=== PATIENT | female | born 1980 | race Caucasian/White ===

== ENCOUNTER 2017-01-27 12:37 | Emergency (ER) | payer MEDICARE, OTHER ==
[2017-01-27 12:57] LABS: APPEARANCE,URINE CLEAR (CLEAR); COLOR,URINE YELLOW (YELLOW); OCCULT BLOOD,URINE TRACE-INTACT (NEGATIVE); UROBILINOGEN URINE 0.2 Eu (0.2-1.0)
--- NOTE | 2017-01-27 13:08 | ED Physician Documentation ---
General Adult - HISTORIAN Historian: patient - HPI Stated Complaint: Urinary Symptoms Chief Complaint: General Adult Onset: days ago Timing: still present Severity: moderate Further Comments: yes (Pt is a 36 yo female with dysuria x 1 day.) - ROS CONST: other (malaise) EYES/ENT: none CVS/RESP: none GI/: problems urinating, other (dysuria) MS/SKIN/LYMPH: none - PAST HX Past History: none Allergies/Adverse Reactions: Allergies Allergy/AdvReac Type Severity Reaction Status Date / Time No Known Allergies Allergy Verified 01/27/17 12:54 Home Medications: Ambulatory Orders Medication Instructions Recorded Folic Acid/Mv,Fe,Other Min [One 1 each PO DAILY 01/27/17 Daily Maximum Tablet] Sulfamethoxazole/Trimethoprim 1 each PO BID #14 tab 01/27/17 [Bactrim Ds] - SOCIAL HX Smoking History: cigarettes - FAMILY HX Family History: No - VITAL SIGNS Vital Signs: Vital Signs Temp Pulse Resp BP Pulse Ox 99.1 F 68 18 158/84 98 01/27/17 12:40 01/27/17 12:40 01/27/17 12:40 01/27/17 12:40 01/27/17 12:40 - REVIEWED ASSESSMENTS Nursing Assessment Reviewed: Yes Vitals Reviewed: Yes Progress - Progress Progress: Rx Bactrim DS. Take one every 12 hrs for 7 days. ED Results Lab/Radiology - Lab Results Lab Results: Lab Results 01/27/17 12:55 Urine Color Yellow (YELLOW) Urine Appearance Clear (CLEAR) Urine pH 6.0 (5.0 - 8.0) Ur Specific [place] 1.020 (1.010-1.030) Urine Protein Negative mg/dL mg/dL (NEGATIVE) Urine Ketones Negative mg/dL mg/dL (NEGATIVE) Urine Occult Blood Trace-intact H (NEGATIVE) Urine Nitrite Negative (NEGATIVE) Urine Bilirubin Negative (NEGATIVE) Urine Urobilinogen 0.2 Eu Eu (0.2-1.0) Ur Leukocyte Esterase Trace H (NEGATIVE) Urine Glucose Negative mg/dL mg/dL (NEGATIVE) - Orders Orders: ED Orders Category Date Time Status UA MACRO DIP ONLY Routine Lab 01/27/17 12:55 Completed URINE CULTURE Routine Lab 01/27/17 12:55 Received General Adult Physical Exam - PHYSICAL EXAM GENERAL APPEARANCE: mild distress EENT: eye inspection normal NECK: normal inspection, supple RESPIRATORY: no resp distress, chest non-tender, breath sounds normal CVS: reg rate & rhythm, heart sounds normal ABDOMEN: soft, no organomegaly, normal bowel sounds BACK: normal inspection, no CVA tenderness SKIN: warm/dry, normal color EXTREMITIES: non-tender, normal range of motion, no evidence of injury NEURO: oriented X3 Discharge Clincal Impression: Dysuria Prescriptions: Sulfamethoxazole/Trimethoprim [Bactrim Ds] 1 each PO BID #14 tab Referrals: Primary Doctor,No [Primary Care Provider] - 2 Days Home Medications: Ambulatory Orders Folic Acid/Mv,Fe,Other Min [One Daily Maximum Tablet] 1 each PO DAILY 01/27/17 Sulfamethoxazole/Trimethoprim [Bactrim Ds] 1 each PO BID #14 tab 01/27/17 Condition: Good Disposition: 01 HOME, SELF-CARE Decision to Admit: NO Decision Time: 13:11
[2017-01-27 13:16] VITALS: BP 125/85
== END 2017-01-27 13:16 | disposition home or self-care (01) ==
LOC: ED 12:37
DX: R30.0 Dysuria (principal)
CPT/HCPCS: 81002; 87086